=== PATIENT | female | born 1990 | race Two or more races ===

== ENCOUNTER 2017-11-14 00:55 | Observation (INO) | payer OTHER ==
[2017-11-14] MEDS ORDERED: HYDROmorphONE/DILAUDID 2 MG/ML INJ ONE ×2 (01:05→13:54)
[2017-11-14] MEDS ORDERED: NS 1,000 ML IV ONE (01:08)
[2017-11-14] MEDS ORDERED: HYDROmorphONE/DILAUDID 2 MG/ML INJ IVP ONE (01:08)
[2017-11-14] MEDS ORDERED: ONDANSETRON 4 MG/2 ML VIAL IVP ONE (01:08)
[2017-11-14] MEDS ORDERED: fentaNYL 100 MCG/2 ML INJ ONE ×2 (02:38→15:16)
[2017-11-14] MEDS ORDERED: PROPOFOL 200 MG/20 ML VIAL ONE ×2 (02:38→12:13)
[2017-11-14] MEDS ORDERED: fentaNYL 100 MCG/2 ML INJ IVP ONE (02:45)
[2017-11-14] MEDS ORDERED: PROPOFOL 200 MG/20 ML VIAL IVP ONE (02:51)
[2017-11-14] MEDS ORDERED: ceFAZolin 2 GM/DEXTROSE 100 ML IV ONE (03:09)
[2017-11-14] MEDS ORDERED: ceFAZolin 2 GM/SWFI 2 GM/20 ML SYR IVP ONE ×2 (03:30→11:00)
--- NOTE | 2017-11-14 03:44 | EDPHY ---
H & P Stated Complaint: FALL ON RIGHT ARM NOW IN SEVERE PAIN Time Seen by Provider: 11/14/17 01:20 HPI/ROS: HPI The patient presents with right arm pain after a fall which occurred just prior to arrival. She was walking on a henrry surface, tripped and fell, and landed on top of her right arm. She had pain immediately and it was severe and dull. She does not have any numbness or tingling of her hand or arm. She is right- hand dominant. She has no prior right arm injuries. REVIEW OF SYSTEMS Constitutional: No fever, no chills. Eyes: No discharge. ENT: No sore throat. Cardiovascular: No chest pain, no palpitations. Respiratory: No cough, no shortness of breath. Gastrointestinal: No abdominal pain, no vomiting. Genitourinary: No hematuria. Musculoskeletal: No back pain. Skin: No rashes. Neurological: No headache. PMHx: Healthy Soc Hx: Here with friends PHYSICAL General Appearance: Alert, no distress Eyes: Pupils equal and round no pallor or injection ENT, Mouth: Mucous membranes moist Respiratory: There are no retractions, lungs are clear to auscultation Cardiovascular: Regular rate and rhythm Gastrointestinal: Abdomen is soft and non-tender, no masses, bowel sounds normal Neurological: A&O, moves all extremities Skin: Warm and dry, no rashes Musculoskeletal: Neck is supple non tender Extremities: Left forearm is edematous with obvious deformity, there is sensation intact to light touch throughout her hand and forearm, there is 2+ radial pulses, there is brisk cap refill in her fingers Psychiatric: Patient is oriented X 3, there is no agitation Source: Patient Exam Limitations: No limitations - Personal History Current Tetanus/Diphtheria Vaccine: Yes Current Tetanus Diphtheria and Acellular Pertussis (TDAP): Yes - Medical/Surgical History Hx Asthma: No Hx Chronic Respiratory Disease: No Hx Diabetes: No Hx Cardiac Disease: No Hx Renal Disease: No Hx Cirrhosis: No Hx Alcoholism: No Hx HIV/AIDS: No Hx Splenectomy or Spleen Trauma: No Other PMH: DENIES - Social History Smoking Status: Never smoked Constitutional: Initial Vital Signs Temperature (C) 36.4 C 11/14/17 00:59 Heart Rate 91 11/14/17 00:59 Respiratory Rate 18 11/14/17 00:59 Blood Pressure 158/102 H 11/14/17 00:59 O2 Sat (%) 97 11/14/17 00:59 O2 Delivery Mode [Post Non-Rebreather Mask Procedure 1st] O2 Delivery Mode [Procedural Non-Rebreather Mask 2nd] O2 Delivery Mode [Procedural Non-Rebreather Mask 1st] O2 Delivery Mode [.Immediate Non-Rebreather Mask Pre-Procedure] O2 (L/minute) [Post Procedure 15 1st] O2 (L/minute) [Procedural 2nd] 15 O2 (L/minute) [Procedural 1st] 15 O2 (L/minute) [.Immediate Pre- 15 Procedure] Allergies/Adverse Reactions: No Known Allergies Allergy (Unverified 11/14/17 01:01) Home Medications: Medication Instructions Recorded NK [No Known Home Meds] 11/14/17 Medical Decision Making - Diagnostics Imaging Results: Right forearm x-ray demonstrates displaced and angulated both-bone forearm fracture, interpreted by me, radiology interpretation is pending. Imaging: I viewed and interpreted images myself Procedures: PROCEDURAL SEDATION Procedure: Procedural sedation. Indication: Displaced both-bone forearm fracture The patient is an appropriate candidate to tolerate procedural sedation. The patient's vital signs and mental status are appropriate. The risks, benefits and alternatives of the sedation were discussed with the patient. The patient is ASA classification 2. The patient's Mallampati airway score was 1 and the patient [did] meet the 3-3-2 airway measurements. A time out was completed. The patient was sedated with propofol 50 mg. The patient was monitored with continuous pulse oximetry, compliance monitor and end tidal CO2. [There were no complications and no significant hypoxemia.] I performed [both the sedation and the procedure.] The total time I spent at the bedside during the procedural sedation was 5 minutes. The patient was examined after the procedural sedation and has returned to their pre-sedation baseline with normal vital signs and a normal examination. REDUCTION Procedure: Dislocation reduction. Indication: Dislocation The right forearm was reduced in the usual fashion without complications. Post reduction the patient's neurovascular exam is normal. Post reduction x-ray demonstrates reduction of the joint to the anatomic position. The procedure was performed by myself. Differential Diagnosis: This is a 27-year-old healthy [id number] female who presents with a fall onto her right arm just prior to arrival. She has sustained a both-bone displaced and angulated forearm fracture. She is neurovascularly intact. She was given pain medication with ongoing pain. Using the ultrasound I attempted a supraclavicular brachial plexus block with lidocaine 1% total of 5 mL is without much improvement in her pain. Decision was made for procedural sedation. During the reduction a laceration which was not previously noted was discovered in her mid forearm anteriorly the measuring approximately 5 mm. This raises my suspicion for open fracture. Because of this, I consulted with the orthopedic surgeon oncology rn Dr. Tomlinson. We plan for Ancef, irrigation of the wound, splint, operation later today. I have ordered the patient a bed in the hospital. I have explained this diagnosis and treatment plan with her. I have answered all of her questions. - Data Points Medications Given: Cefazolin Sodium (Cefazolin Syringe) 2 gm in 20 mls @ 40 mls/hr IVP EDNOW ONE PRN Reason: Protocol Stop: 11/14/17 03:59 Last Admin: 11/14/17 03:21 Dose: 20 mls Discontinued Medications Fentanyl (Sublimaze) 50 mcg IVP EDNOW ONE Stop: 11/14/17 02:46 Last Admin: 11/14/17 03:07 Dose: 50 mcg Hydromorphone HCl (Dilaudid) 1 mg IVP EDNOW ONE Stop: 11/14/17 01:09 Last Admin: 11/14/17 01:13 Dose: 1 mg Sodium Chloride (Ns) 1,000 mls @ 0 mls/hr IV ONCE ONE PRN Reason: Wide Open Stop: 11/14/17 01:09 Last Admin: 11/14/17 01:12 Dose: 1,000 mls Ondansetron HCl (Zofran) 4 mg IVP EDNOW ONE Stop: 11/14/17 01:09 Last Admin: 11/14/17 01:13 Dose: 4 mg Propofol (Diprivan) 70 mg IVP EDNOW ONE Stop: 11/14/17 02:52 Last Admin: 11/14/17 02:51 Dose: 70 mg Departure - Departure Disposition: [facility] Inpatient Acute Clinical Impression: Fx radius/ulna shaft-open Qualifiers: Encounter type: initial encounter Open fracture type: open type I or II Laterality: right Qualified Code(s): S52.301B - Unspecified fracture of shaft of right radius, initial encounter for open fracture type I or II; S52.201B - Unspecified fracture of shaft of right ulna, initial encounter for open fracture type I or II; S52.201B - Unspecified fracture of shaft of right ulna, initial encounter for open fracture type I or II Condition: Fair Referrals: NONE *PRIMARY CARE P,. [Primary Care Provider] - As per Instructions
[2017-11-14] MEDS ORDERED: ONDANSETRON 4 MG/2 ML VIAL IVP PRN ×2 (04:49→15:16)
--- NOTE | 2017-11-14 06:05 | PDGENHP ---
History and Physical History and Physical: films reviewed discussed case with ER Plan for I and D and ORIF BBFA Fx today
[2017-11-14] MEDS ORDERED: D5W 1/2 NS W/ 20 KCl/L 1,000 ML IV SCH (06:15)
[2017-11-14] MEDS ORDERED: ROPIVACAINE HCL 20 MG/10 ML INJ EP ONE ×2 (08:30→12:30)
[2017-11-14] MEDS ORDERED: BACITRACIN 50,000 UNITS/10 ML SYR IRR ONE (08:30)
--- NOTE | 2017-11-14 09:54 | GCON ---
[f rep st] CONSULTATION ORTHOPEDIC EMERGENCY ROOM CONSULTATION DATE OF CONSULTATION: 11/14/2017 CHIEF COMPLAINT: Right forearm pain. DIAGNOSES: Grade 1 open both-bone forearm fracture. HISTORY OF PRESENT ILLNESS: The patient is a 27-year-old female who, in the middle of the night last night, tripped and fell. Possibly intoxicated. Unable to use the right arm. Was seen in the emerg ency room. Close reduced. Found to have some bleeding from a tiny poke hole on the forearm, less th an 5 mm. She had antibiotics, tetanus up to date, and washed out in the emergency room and splinted. ORTHOPEDIC EXAMINATION: EXTREMITIES: Reveals a well-approximated splint. Mobile fingers but painfu l. Sensate over her thumb and index finger and 1st dorsal web space. Brisk cap refill. Bilateral l ower extremities, full motion without pain. Left upper extremity, full motion without pain. ABDOMEN : Soft. PELVIS: Stable. IMAGING: X-rays reviewed reveal a both-bone forearm fracture. Slightly proximal to the midshaft. IMPRESSION/RECOMMENDATION: Reportedly open both-bone forearm fracture. Recommend a washout today. Plans for open reduction, internal fixation. However, if she is too swollen, we will go ahead and de lay this and just treat the open aspect for the time being. Risks, benefits, expectations, and alter natives were discussed. The patient agrees and consents to treatment. Her was at the [facility] for questions and answers. /[id number]/MODL
[2017-11-14 10:42] LABS: PLATELET COUNT 255 10^3/uL (150-400)
[2017-11-14] MEDS ORDERED: LR 1,000 ML IV ONE (11:34)
[2017-11-14] MEDS ORDERED: MIDAZOLAM 2 MG/2 ML VIAL IVP ONE (12:10)
--- NOTE | 2017-11-14 12:10 | PDANEPAE ---
ANE History of Present Illness Forearm fracture from fall ANE Past Medical History - Pulmonary History Hx Oxygen in Use at Home: No Hx Sleep Apnea: No Sleep Apnea Screening Result - Last Documented: Positive - Endocrine History Hx Diabetes: No ANE Review of Systems Review of Systems: ANE Patient History - Allergies Allergies/Adverse Reactions: No Known Allergies Allergy (Unverified 11/14/17 01:01) - Home Medications Home Medications: NK [No Known Home Meds] 11/14/17 [Last Taken Unknown] - NPO status NPO Since - Liquids (Date): 11/14/17 NPO Since - Liquids (Time): 03:00 NPO Since - Solids (Date): 11/13/17 NPO Since - Solids (Time): 20:00 - Anes Hx Anes Hx: no prior problems - Smoking Hx Smoking Status: Never smoked - Alcohol Use Alcohol Use: Occasionally ANE Labs/Vital Signs - Labs Result Diagrams: 11/14/17 10:30 11/14/17 10:30 - Vital Signs Blood Pressure: 101/75 Heart Rate: 77 Respiratory Rate: 16 O2 Sat (%): 98 Height: 167.64 cm Weight: 71 kg ANE Physical Exam - Airway Neck exam: FROM Mallampati Score: Class 1 Mouth exam: normal dental/mouth exam - Pulmonary Pulmonary: no respiratory distress - Cardiovascular Cardiovascular: regular rate and rhythym - ASA Status ASA Status: II ANE Anesthesia Plan Anesthesia Plan: GA w LMA
[2017-11-14] MEDS ORDERED: fentaNYL 250 MCG/5 ML INJ ONE (12:13)
[2017-11-14] MEDS ORDERED: LIDOCAINE 2% 5 ML SDV ONE (12:15)
[2017-11-14] MEDS ORDERED: ONDANSETRON 4 MG/2 ML VIAL ONE (12:16)
[2017-11-14] MEDS ORDERED: DEXAMETHASONE 4 MG/ML VIAL ONE (12:16)
[2017-11-14] MEDS ORDERED: LIDOCAINE 2% JELLY 5 ML TUBE ONE (12:17)
[2017-11-14] MEDS ORDERED: MIDAZOLAM 2 MG/2 ML VIAL ONE (12:17)
[2017-11-14] MEDS ORDERED: KETOROLAC 30 MG/1 ML SDV ONE (14:01)
--- NOTE | 2017-11-14 14:35 | POSTANESTH ---
Post Anesthetic Evaluation Cardiovascular Status: Similar to Pre-Op Cond Respiratory Status: Similar to Pre-op Cond. Level of Consciousness/Mental Status: Alert and Oriented, Mildly Sleepy, Arousable Pain Control: Adequate, Prn Tx Ordered Nausea/Vomiting Control: Adequate, Prn Tx Ordered Complications Possibly Related to Anesthesia: None Noted
[2017-11-14] MEDS ORDERED: OXYCODONE/APAP 5/325 TAB PO PRN (14:47)
[2017-11-14] MEDS ORDERED: ACETAMINOPHEN 325 MG TAB PO PRN (14:47)
--- NOTE | 2017-11-14 14:51 | ASMTCMCOM ---
CM Note CM Note Notes: Pt had forearm ORIF after a fall at home. Pt resides with spouse, anticipate pt will d/c when medically stable. No therapies ordered. CM available for changes/needs. Date Signed: 11/14/2017 02:50 PM Electronically Signed By:GEORGINA Hoover
[2017-11-14] MEDS ORDERED: NALOXONE HCL 0.4 MG/ML INJ IVP PRN (15:16)
[2017-11-14] MEDS ORDERED: PROMETHAZINE HCL 25 MG/ML INJ IVP PRN (15:16)
[2017-11-14] MEDS: fentaNYL 100 MCG/2 ML INJ IVP PRN ×2 (15:17→15:39)
--- NOTE | 2017-11-14 15:26 | GOP ---
[f rep st] OPERATIVE REPORT DATE OF OPERATION: 11/14/2017 SURGEON: Gilberto Vergara MD CRANKSHAFT GRINDER: Nick Wolf, medically required for positioning of the arm and careful retraction of vit al neurovascular structures during open reduction and internal fixation of both-bone forearm fracture . PREOPERATIVE DIAGNOSIS: Grade 1 open both-bone forearm fracture with ulnar-sided poke hole. POSTOPERATIVE DIAGNOSIS: Grade 1 open both-bone forearm fracture with ulnar-sided poke hole. PROCEDURE PERFORMED: 1. Open reduction and internal fixation of both-bone forearm fracture. 2. Irrigation and debridement of 1 cm wound, ulnar side, forearm. 3. Intraoperative fluoroscopy performed and interpreted by surgeon. FINDINGS: INDICATIONS: 27-year-old female had a mechanical fall. Inside-out poke hole on the ulnar side washe d out and reduced in the emergency room, presents for definitive irrigation, debridement and fixation . DESCRIPTION OF PROCEDURE: Patient identified in the preoperative holding area. Consent, laterality a nd preoperative antibiotics were confirmed and delivered. All questions were answered. Her was at bedside. She was able to wiggle her 4 fingers. No pain with passive range of motion of her t humb or fingers. Splint was well approximated. The patient brought into the operating room, transferred over to the OR table. General anesthesia. All extremities well padded. Hand table was used. The right upper extremity was prepped and draped in the usual sterile fashion. Surgical time-out was performed. The forearm was soft and thus we dec ided to proceed with the surgery. There was a 1 cm transverse wound on the volar ulnar aspect of her forearm midway down. We extended this a few millimeters in each direction and washed it out, used a small curette, it looked fairly clean. We used 3000 L of polymyxin bacitracin for this one single w ound. Then, we went ahead with a volar Barron approach. We made an incision from the mid aspect of h er forearm up just distal to the antecubital fossa. Developed the subcutaneous tissue flaps. Took t he fascia in line. We found brachioradialis and the FCR pronator teres interval, and the fracture he matoma was identified. The radial nerve was taken radially. We did not visualize the radial artery or the recurrent leash. We went down to bone and found the supinator and pronator teres, and in supi [place], we took down the supinator and then with slight pronation, we took down pronator teres and de veloped the fracture site. The most distal fragment was attached to pronator teres. We reduced this fracture and placed a 6 hole plate. Confirmed this under fluoroscopic views. We washed out the wou nd with 500 cc of warm normal saline. Went to the ulnar incision. Just a little bit distal on the s ubcutaneous border, we took down FCU to visualize the fracture. There was a butterfly fragment. We used pointed reduction clamps for provisional fixation and then placed the 6 hole plate. Final fluor oscopic views in AP and lateral views show anatomic reduction. Clinically, she had about 70 degrees of supination and approximately 70 degrees of pronation. We washed out all the wounds with 500 cc of warm normal saline, 3-0 Monocryl for closure and 3-0 Prolene for skin. Mastisol and Steri-Strips we re used. Xeroform, 4 x 4's, ABD, and a well-padded sugar-tong splint was used to the metacarpal head s. Tourniquet time was let down after 75 minutes. The patient was extubated awake to the PACU in stable condition. IMPLANTS USED: Two 6-hole 3.5 LCDC plates. /[id number]/MODL
[2017-11-14] MEDS: HYDROCODONE/APAP 5/325 TAB PO PRN ×2 (15:50→16:41)
[2017-11-14] MEDS ORDERED: KETOROLAC 15 MG/1 ML SDV IVP SCH (18:00)
[2017-11-14 20:16] VITALS: BP 117/75
[2017-11-14] MEDS ORDERED: DOCUSATE SODIUM 100 MG CAP PO SCH (21:00)
[2017-11-14] MEDS ORDERED: ceFAZolin 2 GM/DEXTROSE 100 ML IV SCH (22:00)
[2017-11-14] MEDS ORDERED: ceFAZolin 2 GM/SWFI 2 GM/20 ML SYR IVP SCH (22:00)
== END 2017-11-14 20:30 | disposition home or self-care (01) ==
LOC: EDBD 00:55 → F3N 04:05
PROVIDERS: ADMIT Orthopaedic Surgery; ATTEND Orthopaedic Surgery
DX: S52.321B Displaced transverse fracture of shaft of right radius, initial encounter for open fracture type I or II (principal); S52.221B Displaced transverse fracture of shaft of right ulna, initial encounter for open fracture type I or II; W19.XXXA Unspecified fall, initial encounter; Y99.8 Other external cause status
CPT/HCPCS: 11010; 25505; 25575; 73090; G0378; 96374; C1713; J0690; J1100; J1170; J1885; J2250; J2270; J2405; J2704; J2795; J3010; L3980